=== PATIENT | female | born 1975 | race African-American/Black ===

== ENCOUNTER 2020-05-25 23:01 | Emergency (ER) | payer OTHER, SELFPAY ==
[2020-05-25 23:07] VITALS: BP 169/97; PULSE 122; RESP 18; TEMP 36.4; O2SAT 96
[2020-05-26 00:18] LABS: Basophils Percent Auto 0.5 % (0.2-1.2); Eosinophils Absolute Auto 0.1 K/mm3 (0-0.3); Eosinophils Percent Auto 1.9 % (0-4.4); Hematocrit 42.8 % (37.0-47.0); Hemoglobin 13.4 g/dL (12.0-15.0); Immature Granulocyte Absolute 0.04 K/mm3 (0.00-0.031); Immature Granulocyte Percent A 0.5 % (0-0.5); Lymphocytes Absolute Auto 1.57 K/mm3 (0.9-3.2); Mean Corpuscular HGB Conc 31.3 g/dl (32-36); Mean Corpuscular Hemoglobin 30.2 pg (26-34); Mean Corpuscular Volume 96.6 fl (80-100); Mean Platelet Volume 9.9 fl (7.4-10.4); Monocytes Absolute Auto 0.6 K/mm3 (0.1-0.6); Neutrophils Absolute Auto 5.1 K/mm3 (1.3-6.7); Neutrophils Percent Auto 68.1 % (45.5-73.1); Platelet Count Result 299 k/mm3 (150-375); Red Blood Count 4.43 M/mm3 (4.2-5.4); Red Cell Distribution Width 13.4 % (11.5-14.5); White Blood Count 7.5 K/mm3 (4.5-10.0)
[2020-05-26 00:30] LABS: Alanine Aminotransferase 29 U/L (4-35); Albumin Level 4.1 g/dL (3.5-5.1); Alkaline Phosphatase 114 U/L (38-126); Anion Gap 5 mmol/L (8-16); Aspartate Amino Transferase 38 U/L (14-36); Bilirubin,Total 0.6 mg/dL (0.2-1.3); Blood Urea Nitrogen 8 mg/dL (7-17); Calcium 8.9 mg/dL (8.4-10.2); Carbon Dioxide 32 mmol/L (22-30); Chloride 102 mmol/L (98-107); Estimated CRCL calculation 129 ml/min; Estimated Glomerular Filt Rate > 60; Glucose 86 mg/dL (65-105); Sodium 139 mmol/L (137-145)
--- NOTE | 2020-05-26 01:01 | PC.NURSE ---
pt called into triage bay to get another set of vitals, pt refused, states her feet hurt too much. this rn offered pt a wheelchair, pt refused.
--- NOTE | 2020-05-26 03:28 | PC.NURSE ---
pt refusing vitals at this time.
[2020-05-26] MEDS: FUROSEMIDE INJ 40 MG/4 ML VIAL IV PUSH (05:44)
[2020-05-26] MEDS: IBUPROFEN 400 MG TABLET 800 MG PO (05:45)
[2020-05-26 05:51] VITALS: BP 163/109; PULSE 114; RESP 20; O2SAT 100
--- NOTE | 2020-05-26 06:18 | ED.GENADULT ---
HPI - General Adult General Chief complaint: Unspecified Stated complaint: swelling in feet, numbness in fingers and feet Time Seen by Provider: 05/26/20 04:23 Source: patient Mode of arrival: ambulatory History of Present Illness HPI narrative: This patient is a 45 year old female with history of hypothyroid and hypertension who presents for evaluation of bilateral feet and leg swelling. She has been dealing with bilateral leg swelling for 2 months. She reports her legs are so swelling it is causing bilateral feet pain. She is being evaluated by her PCP for this swelling. She reports she has been evaluated for CHF with an ECHO and EKG. She reports her heart test were unremarkable. She has also been evaluated at [facility] for her swelling. She reports she has had a CT scan of her abdomen , pelvis and back. She states she was started on gabapentin , and it does seem to help her pain. She states she is still unclear about what the cause of her swelling is do to. She states she has been placed on lasix for her swelling in the past but only iv works. She denies sob or chest pain. Related Data Allergies Allergy/AdvReac Type Severity Reaction Status Date / Time No Known Allergies Allergy Verified 05/26/20 06:26 Review of Systems Review of Systems: All systems reviewed & are unremarkable except as noted in HPI and below PMFSH Past Medical History Medical History (Updated 05/26/20 @ 06:26 by Taryn Alrled MD) Hypertension Hypothyroid Surgical History Surgical History (Updated 05/26/20 @ 06:23 by Taryn Allred MD) H/O thyroidectomy Social History Social History (Updated 05/26/20 @ 06:23 by Taryn Allred MD) Smoking status: Never smoker Exam Narrative: Exam Narrative: GENERAL: Well-appearing, well-nourished, and in no acute distress. HEAD: Normocephalic, atraumatic EYES: PERRLA and EOMI, NECK: Supple, without lymphadenopathy or mass RESPIRATORY: No respiratory distress, Airway patent, Respirations non-labored, Clear to auscultation without rales, rhonchi or wheeze HEART: Regular rate and rhythm. No murmur heard. Normal peripheral pulses. ABDOMEN: Soft, nontender, nondistended, normal active bowel sounds. No masses. No rebound or guarding, No organomegaly. EXTREMITIES: normal strength with full range of motion. no calf tenderness. She does have bilateral pedal edema . SKIN: Warm, dry, normal color without rash NEURO: Alert and oriented x3. CN 2-12 grossly intact. No focal deficits. PSYCH: Normal mood and affect. Course Reevaluation(s) Reevaluation #1: I have discussed with patient that it unlikely she has DVT. She would like a dose of lasix and she reports that decreases her swelling. Date: 05/26/20 Time: 06:24 Vital Signs Vital signs: Vital Signs Temperature 97.6 F 05/25/20 23:07 Pulse Rate 122 H 05/25/20 23:07 Respiratory Rate 18 05/25/20 23:07 Blood Pressure 169/97 H 05/25/20 23:07 Pulse Oximetry 96 05/25/20 23:07 Temperature 97.6 F 05/25/20 23:07 Pulse Rate 114 H 05/26/20 05:51 Respiratory Rate 20 05/26/20 05:51 Blood Pressure 163/109 H 05/26/20 05:51 Pulse Oximetry 100 05/26/20 05:51 Medical Decision Making Vital Signs Vital Signs: Vital Signs Temperature 97.6 F 05/25/20 23:07 Pulse Rate 122 H 05/25/20 23:07 Respiratory Rate 18 05/25/20 23:07 Blood Pressure 169/97 H 05/25/20 23:07 Pulse Oximetry 96 05/25/20 23:07 Temperature 97.6 F 05/25/20 23:07 Pulse Rate 114 H 05/26/20 05:51 Respiratory Rate 20 05/26/20 05:51 Blood Pressure 163/109 H 05/26/20 05:51 Pulse Oximetry 100 05/26/20 05:51 Lab Data Lab results reviewed: Yes I reviewed the patient's lab results. Result diagrams: 05/26/20 00:10 05/26/20 00:10 Labs: Lab Results 05/26/20 05/26/20 Range/Units 00:10 00:10 WBC 7.5 (4.5-10.0) K/mm3 RBC 4.43 (4.2-5.4) M/mm3 Hgb 13.4 (12.0-1
== END 2020-05-26 06:44 | disposition home or self-care (01) ==
PROVIDERS: Emergency Provider General Practice; PCP Internal Medicine
DX: R60.0 Localized edema (principal); I10 Essential (primary) hypertension; E89.0 Postprocedural hypothyroidism
CPT/HCPCS: 36415; 80053; 85025; 96374; 99284; A9270; J1940